=== PATIENT | female | born 1990 | race Caucasian/White ===

== ENCOUNTER 2018-03-05 07:35 | Emergency (ER) | payer MEDICAID ==
[2018-03-05 07:39] VITALS: BP 117/84
--- NOTE | 2018-03-05 07:52 | EDPHY ---
H & P Time Seen by Provider: 03/05/18 07:51 HPI/ROS: Chief complaint. Low back pain HPI. 19-year-old female with low back pain for 1 day. She yesterday she was lifting and twisting and felt a small twinge in her right lower back which has gradually worsened. She stiff and sore when she is trying to move. She has occasionally had low back pain past. Pain is described as dull in the right low back. There is no radiation to the legs though some sense of radiation to the right buttock area. No abdominal pain or urinary symptoms. No fever. No leg weakness or bowel or bladder symptoms. She did take ibuprofen last evening. Her symptoms are better with standing and worse with sitting. There was no fall or injury. ROS Constitutional. no fever/chills, no weakness Eyes. no problems with vision ENT. no sore throat, no nasal drainage Cardiovascular. no chest pain Respiratory. no shortness of breath, no cough Abdominal. no abdominal pain, no nausea/vomiting, no diarrhea . no problems urinating MS. Right low back pain Skin. no rash Lymph. no swollen glands Neuro. no headache, no dizziness, no difficulty walking or with speech Past Medical/Surgical History: Healthy Social History: Single, nonsmoker, no alcohol Smoking Status: Never smoked Physical Exam: General Appearance: Alert well-developed female mild distress vital signs are stable Eyes: Pupils equal and round no pallor or injection. ENT, Mouth: Mucous membranes are moist. Respiratory: There are no retractions, lungs are clear to auscultation. Cardiovascular: Regular rate and rhythm. Gastrointestinal: Abdomen is soft and nontender, no masses, bowel sounds normal. Neurological: Awake and alert, sensory and motor exams grossly normal. Straight leg raising negative at 30 degrees bilaterally. Deep tendon reflexes are symmetrical. Sensation is normal. Great toe strength is normal. Skin: Warm and dry, no rashes. Musculoskeletal: Neck is supple nontender. Tender in the right lower back but no tenderness over the lumbar or sacral spine. No C or T-spine tenderness. Extremities symmetrical, full range of motion. Psychiatric: Patient is oriented X 3, there is no agitation. Constitutional: Initial Vital Signs Temperature (C) 36.5 C 03/05/18 07:36 Heart Rate 68 03/05/18 07:36 Respiratory Rate 16 03/05/18 07:36 Blood Pressure 117/84 H 03/05/18 07:36 O2 Sat (%) 99 03/05/18 07:36 O2 Delivery Mode Room Air Allergies/Adverse Reactions: No Known Allergies Allergy (Unverified 03/05/18 07:39) Home Medications: Medication Instructions Recorded Cyclobenzaprine [Flexeril 10 MG 10 mg PO TID PRN #15 tab 03/05/18 (*)] Lidocain/Me-Salicyl/Caps/Menth 1 each TP DAILY PRN #12 adh..patch 03/05/18 [Medi-Patch with Lidocaine] Medical Decision Making Procedures: Ibuprofen and lidocaine patch ED Course/Re-evaluation: Patient remained stable. Patient and I discussed treatment plan including criteria for return and importance of follow-up and further evaluation. She expresses understanding and agreement Differential Diagnosis: I think that this is muscular low back pain. I considered HNP, cauda equina syndrome. Departure - Departure Disposition: Home, Routine, Self-Care Clinical Impression: Low back pain Qualifiers: Chronicity: acute Back pain laterality: right Sciatica presence: without sciatica Qualified Code(s): M54.5 - Low back pain Condition: Good Instructions: Low Back Strain (ED), Lower Back Exercises (ED) Additional Instructions: Ice to sore area next 24 hr. Ibuprofen 600 mg every 6 hr for discomfort Flexeril as muscle relaxer Lidocaine patches to help with pain. These need to be changed every 24 hr. Return for worsening pain, bowel or bladder symptoms, leg weakness. Recheck in 2-3 days if not improved Referrals: NONE *PRIMARY CARE P,. [Primary Care Provider] - As per Instructions Valeria Suarez MD [Medical Doctor] - 2-3 days, if not improved Prescriptions: Cyclobenzaprine [Flexeril 10 MG (*)] 10 mg PO TID PRN #15 tab PRN Reason: Spasms Lidocain/Me-Salicyl/Caps/Menth [Medi-Patch with Lidocaine] 1 each TP DAILY PRN # 12 adh..patch PRN Reason: Pain, Moderate
[2018-03-05] MEDS ORDERED: IBUPROFEN 600 MG TAB PO ONE (08:05)
[2018-03-05] MEDS ORDERED: LIDOCAINE 4%/MENTHOL 1% PATCH TD ONE (08:05)
[2018-03-05] MEDS ORDERED: PATCH REMOVAL 1 EA PATCH TD SCH (21:00)
== END 2018-03-05 08:25 | disposition home or self-care (01) ==
DX: M54.5 Low back pain (principal)